=== PATIENT | male | born 1965 | race Caucasian/White ===

== ENCOUNTER 2019-12-03 14:24 | Emergency (ER) | payer OTHER | END 2019-12-03 15:48 | disposition home or self-care (01) | LOC: ERS 14:24 | DX: Z20.828 Contact with and (suspected) exposure to other viral communicable diseases (principal); Z87.442 Personal history of urinary calculi; F17.220 Nicotine dependence, chewing tobacco, uncomplicated | CPT/HCPCS: 87804; 99283; U0001 ==

== ENCOUNTER 2020-02-22 07:27 | Emergency (ER) | payer OTHER, SELFPAY | END 2020-02-22 10:09 | disposition home or self-care (01) | LOC: ERS 07:27 | DX: Z20.828 Contact with and (suspected) exposure to other viral communicable diseases (principal); Z87.442 Personal history of urinary calculi; F17.220 Nicotine dependence, chewing tobacco, uncomplicated | CPT/HCPCS: 87635; 99283; U0003 ==